=== PATIENT | female | born 1960 | race Caucasian/White ===

== ENCOUNTER 2022-02-02 13:11 | Outpatient (CLI) | payer BC | END 2022-02-02 13:12 | disposition home or self-care (01) | LOC: BICMAMMO 13:11 | PROVIDERS: ATTEND Internal Medicine | DX: Z12.31 Encounter for screening mammogram for malignant neoplasm of breast (principal); Z12.2 Encounter for screening for malignant neoplasm of respiratory organs; J44.9 Chronic obstructive pulmonary disease, unspecified; I25.10 Atherosclerotic heart disease of native coronary artery without angina pectoris; Z98.890 Other specified postprocedural states; Z85.3 Personal history of malignant neoplasm of breast; Z87.891 Personal history of nicotine dependence; Z80.3 Family history of malignant neoplasm of breast | CPT/HCPCS: 71271; 77063; 77067 ==

== ENCOUNTER 2022-05-06 08:58 | Outpatient (CLI) | payer BC | END 2022-05-06 08:59 | disposition home or self-care (01) | LOC: SCSMRI 08:58 | PROVIDERS: ATTEND Nurse Practitioner Family | DX: M47.26 Other spondylosis with radiculopathy, lumbar region (principal) | CPT/HCPCS: 72148 ==